=== PATIENT | male | born 1935 | race African-American/Black ===

== ENCOUNTER 2020-06-24 15:42 | Inpatient (IN) | payer MEDICARE, BC ==
[~2020-06-24] VITALS: Ht 180.3 cm; Wt 88.5 kg
[2020-06-24] MEDS ORDERED: ONDANSETRON HCL 4MG/2ML INJ IV STA (15:58)
[2020-06-24] MEDS ORDERED: MORPHINE SULFATE 4 MG/ML CPJ (NOT FOR IM USE) IV STA ×2 (15:58→18:01)
[2020-06-24] MEDS ORDERED: SODIUM CHLORIDE 0.9% 1,000 ML IV ONE (16:00)
[2020-06-24 16:33] LABS: BASOPHILS % 0.8 % (0.0-2.0); EOSINOPHILS % 14.1 % (0.0-5.0); HEMATOCRIT. 39.1 % (42.0-52.0); HEMOGLOBIN. 12.5 g/dL (14.0-18.0); LYMPHOCYTES % 26.6 % (20.0-50.0); MEAN CORPUSCULAR HEMOGLOBIN 25.5 pg (28.0-32.0); MEAN CORPUSCULAR VOLUME 79.8 fL (80.0-94.0); MEAN PLATELET VOLUME 9.3 fl (7.4-10.4); MONOCYTES % 7.5 % (2.0-8.0); PLATELET 132 x1000/uL (130-400); RED CELL DISTRIBUTION WIDTH 21.6 % (11.6-14.6)
[2020-06-24 16:38] LABS: CHLORIDE 109 mEq/L (98-107)
[2020-06-24 16:45] LABS: PROTHROMBIN TIME 11.1 sec (9.6-11.0)
[2020-06-24] MEDS ORDERED: CLONIDINE 0.1MG TABLET PO PRN (18:30)
[2020-06-24] MEDS ORDERED: ACETAMINOPHEN 325MG TABLET PO PRN ×2 (18:30→22:00)
[2020-06-24] MEDS ORDERED: ONDANSETRON HCL 4MG/2ML INJ IV PRN (18:30)
[2020-06-24] MEDS: AMLODIPINE 10MG TABLET PO SCH (18:44)
[2020-06-24] MEDS ORDERED: POTASSIUM CHLORIDE 20MEQ TABLET SR PO NR (19:00)
[2020-06-24 20:00] VITALS: BP 116/68
[2020-06-24 20:50] VITALS: BP 116/68
[2020-06-24] MEDS: MORPHINE SULFATE 2 MG/ML CPJ (NOT FOR IM USE) IV PRN (23:09)
[2020-06-25] VITALS: BP 104/59
[2020-06-25] MEDS ORDERED: ABIR250T PO (00:23)
[2020-06-25] MEDS ORDERED: DOCU-150 MT (00:23)
[2020-06-25] MEDS ORDERED: FURO20TA4 PO (00:23)
[2020-06-25] MEDS ORDERED: SENN-257 PO (00:23)
[2020-06-25] MEDS ORDERED: LISI40TA13 PO (00:23)
[2020-06-25] MEDS ORDERED: ASPI-1406 PO (00:23)
[2020-06-25] MEDS ORDERED: LEVO125T8 PO (00:23)
[2020-06-25] MEDS ORDERED: FERR325T6 PO (00:23)
[2020-06-25] MEDS ORDERED: POTA10CA42 PO (00:23)
[2020-06-25] MEDS: MORPHINE SULFATE 2 MG/ML CPJ (NOT FOR IM USE) IV PRN (03:22)
[2020-06-25 04:00] VITALS: BP 104/62
[2020-06-25] MEDS: LEVOTHYROXINE SODIUM 125MCG TABLET PO SCH (05:59)
[2020-06-25 06:46] LABS: BASOPHILS % 0.3 % (0.0-2.0); EOSINOPHILS % 7.1 % (0.0-5.0); HEMATOCRIT. 28.8 % (42.0-52.0); LYMPHOCYTES % 18.3 % (20.0-50.0); MEAN CORPUSCULAR HEMOGLOBIN 25.1 pg (28.0-32.0); MEAN CORPUSCULAR VOLUME 80.4 fL (80.0-94.0); MEAN PLATELET VOLUME 9.1 fl (7.4-10.4); MONOCYTES % 9.8 % (2.0-8.0); NEUTROPHILS % 64.5 % (40.0-76.0); PLATELET 110 x1000/uL (130-400); RED BLOOD CELL COUNT 3.58 mill/uL (4.7-6.1); RED CELL DISTRIBUTION WIDTH 21.6 % (11.6-14.6)
[2020-06-25 06:55] LABS: CHLORIDE 114 mEq/L (98-107)
[2020-06-25 07:09] LABS: T4 FREE 1.01 ng/dL (0.76-1.46)
[2020-06-25] MEDS ORDERED: FERROUS SULFATE 325MG TABLET PO SCH (07:15)
[2020-06-25 08:00] VITALS: BP 109/51
[2020-06-25] MEDS: AMLODIPINE 10MG TABLET PO SCH (08:07)
[2020-06-25] MEDS: DOCUSATE SODIUM 100MG CAPSULE PO SCH (08:11)
[2020-06-25] MEDS: FERROUS SULFATE 325MG TABLET PO SCH ×3 (08:11→17:15)
[2020-06-25] MEDS: ENOXAPARIN 40MG/0.4ML SYR SUBCUT SCH (08:11)
[2020-06-25] MEDS ORDERED: LISINOPRIL 40MG TABLET PO SCH (09:00)
[2020-06-25] MEDS ORDERED: DOCUSATE SODIUM 100MG CAPSULE PO SCH (09:00)
[2020-06-25] MEDS ORDERED: ASPIRIN 81MG TABLET PO SCH (09:00)
[2020-06-25 12:00] VITALS: BP 95/33
[2020-06-25 16:00] VITALS: BP 103/43
[2020-06-25 19:51] LABS: BASOPHILS % 0.4 % (0.0-2.0); EOSINOPHILS % 8.3 % (0.0-5.0); HEMATOCRIT. 26.7 % (42.0-52.0); HEMOGLOBIN. 8.5 g/dL (14.0-18.0); LYMPHOCYTES % 19.4 % (20.0-50.0); MEAN CORPUSCULAR HEMOGLOBIN 25.3 pg (28.0-32.0); MEAN CORPUSCULAR VOLUME 79.4 fL (80.0-94.0); MEAN PLATELET VOLUME 9.1 fl (7.4-10.4); MONOCYTES % 8.6 % (2.0-8.0); NEUTROPHILS % 63.3 % (40.0-76.0); PLATELET 115 x1000/uL (130-400); RED BLOOD CELL COUNT 3.36 mill/uL (4.7-6.1); RED CELL DISTRIBUTION WIDTH 21.7 % (11.6-14.6)
[2020-06-25 20:00] VITALS: BP 110/36
[2020-06-25] MEDS: DILTIAZEM HCL 60MG TABLET PO SCH (21:57)
[2020-06-26] VITALS: BP 158/62
[2020-06-26] MEDS: MORPHINE SULFATE 2 MG/ML CPJ (NOT FOR IM USE) IV PRN (00:50)
[2020-06-26 04:00] VITALS: BP 134/46
[2020-06-26] MEDS: DILTIAZEM HCL 60MG TABLET PO SCH ×3 (06:00→21:06)
[2020-06-26] MEDS ORDERED: BACITRACIN 50,000 UNITS/VIAL ONE ×2 (06:25→07:12)
[2020-06-26] MEDS ORDERED: VANCOMYCIN HCL 1 GM/VIAL ONE ×3 (06:25→10:19)
[2020-06-26] MEDS: LEVOTHYROXINE SODIUM 125MCG TABLET PO SCH (06:25)
[2020-06-26] MEDS: FERROUS SULFATE 325MG TABLET PO SCH ×3 (06:53→18:11)
[2020-06-26 06:56] LABS: CHLORIDE 112 mEq/L (98-107)
[2020-06-26 07:09] LABS: BASOPHILS % 0.3 % (0.0-2.0); EOSINOPHILS % 8.9 % (0.0-5.0); HEMATOCRIT. 25.3 % (42.0-52.0); LYMPHOCYTES % 27.8 % (20.0-50.0); MEAN CORPUSCULAR HEMOGLOBIN 25.5 pg (28.0-32.0); MEAN CORPUSCULAR VOLUME 80.2 fL (80.0-94.0); MEAN PLATELET VOLUME 9.1 fl (7.4-10.4); MONOCYTES % 10.8 % (2.0-8.0); NEUTROPHILS % 52.2 % (40.0-76.0); PLATELET 109 x1000/uL (130-400); RED BLOOD CELL COUNT 3.16 mill/uL (4.7-6.1); RED CELL DISTRIBUTION WIDTH 21.8 % (11.6-14.6)
[2020-06-26] MEDS ORDERED: FENTANYL CITRATE/PF 50MCG/ML 2ML VIAL ONE (07:25)
[2020-06-26] MEDS ORDERED: MIDAZOLAM HCL 2 MG/2 ML VIAL ONE (07:26)
[2020-06-26] MEDS ORDERED: PROPOFOL 200MG/20ML VIAL IV ONE (07:26)
[2020-06-26] MEDS ORDERED: ONDANSETRON HCL 4MG/2ML INJ ONE (07:27)
[2020-06-26] MEDS ORDERED: DEXAMETHASONE 4MG/ML 1ML VIAL ONE (07:27)
[2020-06-26] MEDS ORDERED: ROCURONIUM BROMIDE 10MG/ML VIAL 5ML IV ONE (07:55)
[2020-06-26] MEDS ORDERED: LABETALOL 5MG/ML SYR 20 MG/4 ML SYRINGE IV PRN (08:00)
[2020-06-26] MEDS ORDERED: MEPERIDINE HCL/PF 25MG/ML CPJ IV PRN (08:00)
[2020-06-26] MEDS ORDERED: ONDANSETRON HCL 4MG/2ML INJ IV PRN (08:00)
[2020-06-26] MEDS ORDERED: HYDROMORPHONE HCL/PF 2MG/ML CPJ IV PRN (08:00)
[2020-06-26] MEDS: LISINOPRIL 20MG TABLET PO SCH (09:00)
[2020-06-26] MEDS: DOCUSATE SODIUM 100MG CAPSULE PO SCH (09:00)
[2020-06-26] MEDS: ENOXAPARIN 40MG/0.4ML SYR SUBCUT SCH (09:00)
[2020-06-26] MEDS ORDERED: FENTANYL CITRATE/PF 50MCG/ML 5ML VIAL ONE (09:04)
[2020-06-26] MEDS ORDERED: BUPIVACAINE HCL/PF 0.5% (5MG/ML) 10ML ONE ×2 (09:17→09:18)
[2020-06-26] MEDS ORDERED: GLYCOPYRROLATE 0.2 MG/ML 2ML VIAL ONE (10:55)
[2020-06-26] MEDS ORDERED: NEOSTIGMINE METHYLSULFATE 1MG/ML 10 ML VIAL ONE (10:55)
[2020-06-26 12:00] VITALS: BP 106/52
[2020-06-26 13:01] LABS: HEMATOCRIT. 29.2 % (42.0-52.0); HEMOGLOBIN. 9.5 g/dL (14.0-18.0); MEAN CORPUSCULAR VOLUME 80.2 fL (80.0-94.0); MEAN PLATELET VOLUME 8.8 fl (7.4-10.4); PLATELET 85 x1000/uL (130-400); RED BLOOD CELL COUNT 3.65 mill/uL (4.7-6.1); RED CELL DISTRIBUTION WIDTH 19.6 % (11.6-14.6)
[2020-06-26] MEDS: CEFAZOLIN 2,000 MG in DEXT 5% WATER 100 ML IV SCH ×2 (15:00→21:06)
[2020-06-26 16:00] VITALS: BP 114/49
[2020-06-26 17:12] LABS: PLATELET ESTIMATE DECREASED
[2020-06-26 20:00] VITALS: BP 107/40
[2020-06-27] VITALS: BP 128/68
[2020-06-27 04:00] VITALS: BP 148/52
[2020-06-27] MEDS: FERROUS SULFATE 325MG TABLET PO SCH ×3 (06:37→17:58)
[2020-06-27] MEDS: DILTIAZEM HCL 60MG TABLET PO SCH (06:37)
[2020-06-27] MEDS: LEVOTHYROXINE SODIUM 125MCG TABLET PO SCH (06:37)
[2020-06-27] MEDS: CEFAZOLIN 2,000 MG in DEXT 5% WATER 100 ML IV SCH ×3 (06:37→22:14)
[2020-06-27 06:45] LABS: HEMATOCRIT. 27.3 % (42.0-52.0); MEAN CORPUSCULAR HEMOGLOBIN 25.7 pg (28.0-32.0); MEAN CORPUSCULAR VOLUME 77.6 fL (80.0-94.0); MEAN PLATELET VOLUME 9.1 fl (7.4-10.4); PLATELET 96 x1000/uL (130-400); RED BLOOD CELL COUNT 3.52 mill/uL (4.7-6.1); RED CELL DISTRIBUTION WIDTH 19.2 % (11.6-14.6)
[2020-06-27 07:00] LABS: CHLORIDE 115 mEq/L (98-107)
[2020-06-27 08:00] VITALS: BP 144/38
[2020-06-27] MEDS: DOCUSATE SODIUM 100MG CAPSULE PO SCH (09:15)
[2020-06-27] MEDS: LISINOPRIL 20MG TABLET PO SCH (09:15)
[2020-06-27] MEDS: MORPHINE SULFATE 2 MG/ML CPJ (NOT FOR IM USE) IV PRN (11:21)
[2020-06-27 11:49] LABS: PLATELET ESTIMATE DECREASED
[2020-06-27 12:00] VITALS: BP 118/39
[2020-06-27] MEDS: ENOXAPARIN 40MG/0.4ML SYR SUBCUT SCH (12:37)
[2020-06-27] MEDS: HYDROCODONE/ACETAMINOPHEN 10/325MG TABLET PO PRN (13:07)
[2020-06-27] MEDS: DILTIAZEM HCL 90MG TABLET PO SCH ×2 (14:00→22:00)
[2020-06-27 16:00] VITALS: BP 102/37
[2020-06-27 20:00] VITALS: BP 121/44
[2020-06-28] VITALS: BP 121/49
[2020-06-28] MEDS: HYDROCODONE/ACETAMINOPHEN 10/325MG TABLET PO PRN ×3 (03:06→20:40)
[2020-06-28 04:00] VITALS: BP 143/49
[2020-06-28] MEDS: DILTIAZEM HCL 90MG TABLET PO SCH (05:02)
[2020-06-28] MEDS: CEFAZOLIN 2,000 MG in DEXT 5% WATER 100 ML IV SCH ×3 (05:03→23:21)
[2020-06-28] MEDS: LEVOTHYROXINE SODIUM 125MCG TABLET PO SCH (06:12)
[2020-06-28] MEDS: FERROUS SULFATE 325MG TABLET PO SCH ×3 (06:12→18:20)
[2020-06-28 07:28] LABS: BASOPHILS % 0.2 % (0.0-2.0); EOSINOPHILS % 7.2 % (0.0-5.0); HEMATOCRIT. 23.8 % (42.0-52.0); LYMPHOCYTES % 15.5 % (20.0-50.0); MEAN CORPUSCULAR HEMOGLOBIN 26.9 pg (28.0-32.0); MEAN CORPUSCULAR VOLUME 79.8 fL (80.0-94.0); MEAN PLATELET VOLUME 9.2 fl (7.4-10.4); MONOCYTES % 7.9 % (2.0-8.0); NEUTROPHILS % 69.2 % (40.0-76.0); PLATELET 102 x1000/uL (130-400); RED BLOOD CELL COUNT 2.98 mill/uL (4.7-6.1); RED CELL DISTRIBUTION WIDTH 19.7 % (11.6-14.6)
[2020-06-28 07:42] LABS: CHLORIDE 109 mEq/L (98-107)
[2020-06-28 08:00] VITALS: BP 144/43
[2020-06-28] MEDS: ENOXAPARIN 40MG/0.4ML SYR SUBCUT SCH (09:23)
[2020-06-28] MEDS: DOCUSATE SODIUM 100MG CAPSULE PO SCH (09:23)
[2020-06-28] MEDS: LISINOPRIL 20MG TABLET PO SCH (09:23)
[2020-06-28] MEDS ORDERED: DILTIAZEM HCL 300MG CAPSULE SR 24HR PO SCH (11:30)
[2020-06-28 12:00] VITALS: BP 113/50
[2020-06-28] MEDS: DILTIAZEM HCL 300MG CAPSULE SR 24HR PO SCH (13:19)
[2020-06-28 16:00] VITALS: BP 122/43
[2020-06-28 20:00] VITALS: BP 113/57
[2020-06-29] VITALS: BP 138/53
[2020-06-29 04:00] VITALS: BP 148/70
[2020-06-29] MEDS: LEVOTHYROXINE SODIUM 125MCG TABLET PO SCH (05:56)
[2020-06-29] MEDS: CEFAZOLIN 2,000 MG in DEXT 5% WATER 100 ML IV SCH (05:56)
[2020-06-29 06:14] LABS: CHLORIDE 107 mEq/L (98-107)
[2020-06-29 06:19] LABS: BASOPHILS % 0.3 % (0.0-2.0); EOSINOPHILS % 7.7 % (0.0-5.0); HEMATOCRIT. 24.7 % (42.0-52.0); HEMOGLOBIN. 8.3 g/dL (14.0-18.0); LYMPHOCYTES % 15.3 % (20.0-50.0); MEAN CORPUSCULAR HEMOGLOBIN 27.1 pg (28.0-32.0); MEAN CORPUSCULAR VOLUME 80.9 fL (80.0-94.0); MEAN PLATELET VOLUME 8.6 fl (7.4-10.4); MONOCYTES % 9.2 % (2.0-8.0); NEUTROPHILS % 67.5 % (40.0-76.0); PLATELET 125 x1000/uL (130-400); RED BLOOD CELL COUNT 3.06 mill/uL (4.7-6.1); RED CELL DISTRIBUTION WIDTH 19.2 % (11.6-14.6)
[2020-06-29] MEDS: FERROUS SULFATE 325MG TABLET PO SCH ×4 (07:44→18:13)
[2020-06-29 08:00] VITALS: BP 104/42
[2020-06-29] MEDS: LISINOPRIL 20MG TABLET PO SCH (09:00)
[2020-06-29] MEDS: DILTIAZEM HCL 300MG CAPSULE SR 24HR PO SCH (09:00)
[2020-06-29] MEDS: DOCUSATE SODIUM 100MG CAPSULE PO SCH ×2 (09:47→18:13)
[2020-06-29] MEDS: ENOXAPARIN 40MG/0.4ML SYR SUBCUT SCH (09:47)
[2020-06-29] MEDS: HYDROCODONE/ACETAMINOPHEN 10/325MG TABLET PO PRN (09:48)
[2020-06-29 12:00] VITALS: BP 139/54
[2020-06-29 13:04] LABS: TOTAL IRON BINDING CAPACITY 271 ug/dL (250-450)
[2020-06-29 16:00] VITALS: BP 133/47
[2020-06-29] MEDS ORDERED: DOCUSATE SODIUM 250MG CAPSULE PO SCH (18:00)
[2020-06-29 20:00] VITALS: BP 153/52
[2020-06-30] VITALS: BP 151/51
[2020-06-30] MEDS: LEVOTHYROXINE SODIUM 125MCG TABLET PO SCH (06:20)
[2020-06-30 06:55] LABS: BASOPHILS % 0.2 % (0.0-2.0); HEMATOCRIT. 24.6 % (42.0-52.0); HEMOGLOBIN. 7.9 g/dL (14.0-18.0); LYMPHOCYTES % 11.3 % (20.0-50.0); MEAN CORPUSCULAR HEMOGLOBIN 25.9 pg (28.0-32.0); MEAN CORPUSCULAR VOLUME 81.2 fL (80.0-94.0); MEAN PLATELET VOLUME 8.3 fl (7.4-10.4); MONOCYTES % 7.9 % (2.0-8.0); NEUTROPHILS % 73.6 % (40.0-76.0); PLATELET 152 x1000/uL (130-400); RED BLOOD CELL COUNT 3.03 mill/uL (4.7-6.1); RED CELL DISTRIBUTION WIDTH 19.1 % (11.6-14.6)
[2020-06-30 07:01] LABS: CHLORIDE 106 mEq/L (98-107)
[2020-06-30] MEDS: FERROUS SULFATE 325MG TABLET PO SCH ×5 (07:15→17:58)
[2020-06-30 08:00] VITALS: BP 160/67
[2020-06-30] MEDS: DILTIAZEM HCL 300MG CAPSULE SR 24HR PO SCH (08:56)
[2020-06-30] MEDS: HYDROCODONE/ACETAMINOPHEN 10/325MG TABLET PO PRN (08:57)
[2020-06-30] MEDS: DOCUSATE SODIUM 100MG CAPSULE PO SCH (08:57)
[2020-06-30] MEDS: LISINOPRIL 20MG TABLET PO SCH (08:57)
[2020-06-30] MEDS: ENOXAPARIN 40MG/0.4ML SYR SUBCUT SCH (08:58)
[2020-06-30] MEDS ORDERED: POTASSIUM CHLORIDE 20MEQ TABLET SR PO NR (10:45)
[2020-06-30] MEDS: FOLIC ACID 1MG TABLET PO SCH (11:20)
[2020-06-30 12:00] VITALS: BP 153/57
[2020-06-30 16:00] VITALS: BP_SYST 122; BP_SYST 158; BP_DIAS 50; BP_DIAS 59
[2020-06-30 20:00] VITALS: BP 123/58
[2020-06-30] MEDS: DILTIAZEM HCL 120MG CAPSULE CD 24HR PO SCH (21:30)
[2020-07-01] VITALS: BP 124/65
[2020-07-01 04:00] VITALS: BP 118/53
[2020-07-01] MEDS: LEVOTHYROXINE SODIUM 125MCG TABLET PO SCH (06:50)
[2020-07-01 07:07] LABS: CHLORIDE 107 mEq/L (98-107)
[2020-07-01 07:16] LABS: BASOPHILS % 0.4 % (0.0-2.0); EOSINOPHILS % 7.3 % (0.0-5.0); HEMATOCRIT. 22.6 % (42.0-52.0); HEMOGLOBIN. 7.3 g/dL (14.0-18.0); LYMPHOCYTES % 11.7 % (20.0-50.0); MEAN CORPUSCULAR HEMOGLOBIN 26.5 pg (28.0-32.0); MEAN CORPUSCULAR VOLUME 81.6 fL (80.0-94.0); MEAN PLATELET VOLUME 8.3 fl (7.4-10.4); MONOCYTES % 9.2 % (2.0-8.0); NEUTROPHILS % 71.4 % (40.0-76.0); PLATELET 163 x1000/uL (130-400); RED BLOOD CELL COUNT 2.76 mill/uL (4.7-6.1); RED CELL DISTRIBUTION WIDTH 19.7 % (11.6-14.6)
[2020-07-01 08:00] VITALS: BP 100/56
[2020-07-01] MEDS: ENOXAPARIN 40MG/0.4ML SYR SUBCUT SCH (08:34)
[2020-07-01] MEDS: DOCUSATE SODIUM 100MG CAPSULE PO SCH (08:34)
[2020-07-01] MEDS: FOLIC ACID 1MG TABLET PO SCH (08:34)
[2020-07-01] MEDS: FERROUS SULFATE 325MG TABLET PO SCH ×3 (08:34→17:12)
[2020-07-01] MEDS: LISINOPRIL 20MG TABLET PO SCH (09:00)
[2020-07-01] MEDS: DILTIAZEM HCL 120MG CAPSULE CD 24HR PO SCH ×2 (09:00→21:51)
[2020-07-01] MEDS ORDERED: POTASSIUM CHLORIDE 20MEQ TABLET SR PO SCH (09:45)
[2020-07-01 16:15] VITALS: BP 112/60
[2020-07-01 20:00] VITALS: BP 145/54
[2020-07-02] VITALS (7 sets, daily range): BP systolic 101–169; BP diastolic 38–61
[2020-07-02] MEDS: LEVOTHYROXINE SODIUM 125MCG TABLET PO SCH (06:24)
[2020-07-02 08:00] LABS: BASOPHILS % 0.7 % (0.0-2.0); HEMATOCRIT. 26.1 % (42.0-52.0); HEMOGLOBIN. 8.6 g/dL (14.0-18.0); LYMPHOCYTES % 11.9 % (20.0-50.0); MEAN CORPUSCULAR HEMOGLOBIN 27.4 pg (28.0-32.0); MEAN CORPUSCULAR VOLUME 83.1 fL (80.0-94.0); MEAN PLATELET VOLUME 8.4 fl (7.4-10.4); MONOCYTES % 9.5 % (2.0-8.0); NEUTROPHILS % 68.9 % (40.0-76.0); PLATELET 197 x1000/uL (130-400); RED BLOOD CELL COUNT 3.13 mill/uL (4.7-6.1); RED CELL DISTRIBUTION WIDTH 20.1 % (11.6-14.6)
[2020-07-02 08:03] LABS: CHLORIDE 106 mEq/L (98-107)
[2020-07-02] MEDS: FERROUS SULFATE 325MG TABLET PO SCH ×3 (08:50→17:26)
[2020-07-02] MEDS: FOLIC ACID 1MG TABLET PO SCH (08:51)
[2020-07-02] MEDS: DOCUSATE SODIUM 100MG CAPSULE PO SCH (08:51)
[2020-07-02] MEDS: ENOXAPARIN 40MG/0.4ML SYR SUBCUT SCH (08:52)
[2020-07-02] MEDS ORDERED: POTASSIUM CHLORIDE 20MEQ TABLET SR PO SCH (09:00)
[2020-07-02] MEDS ORDERED: LISINOPRIL 20MG TABLET PO SCH (09:00)
[2020-07-02] MEDS: DILTIAZEM HCL 120MG CAPSULE CD 24HR PO SCH (09:55)
== END 2020-07-02 17:42 | DRG 480 ==
LOC: ER 15:42 → 5WST 17:50 → EDBEDREQ 18:00 → ENRESERV 19:44 → 6EST 06-30 16:58
PROVIDERS: ADMIT Internal Medicine; ATTEND Internal Medicine
PROC: 0QSB04Z Reposition Right Lower Femur with Internal Fixation Device, Open Approach (ICD-10-PCS; principal; 2020-06-26)
PROC: 30233N1 Transfusion of Nonautologous Red Blood Cells into Peripheral Vein, Percutaneous Approach (ICD-10-PCS; 2020-06-26)
DX: M97.01XA Periprosthetic fracture around internal prosthetic right hip joint, initial encounter (principal); S72.001A Fracture of unspecified part of neck of right femur, initial encounter for closed fracture; I42.2 Other hypertrophic cardiomyopathy; D64.9 Anemia, unspecified; E87.6 Hypokalemia; E87.8 Other disorders of electrolyte and fluid balance, not elsewhere classified; I11.0 Hypertensive heart disease with heart failure; W01.0XXA Fall on same level from slipping, tripping and stumbling without subsequent striking against object, initial encounter; I50.9 Heart failure, unspecified; Z20.822 Contact with and (suspected) exposure to COVID-19; Z96.641 Presence of right artificial hip joint; Z96.651 Presence of right artificial knee joint; Y93.01 Activity, walking, marching and hiking; K59.00 Constipation, unspecified; X58.XXXA Exposure to other specified factors, initial encounter; N40.0 Benign prostatic hyperplasia without lower urinary tract symptoms; Y92.009 Unspecified place in unspecified non-institutional (private) residence as the place of occurrence of the external cause; Y93.89 Activity, other specified; Y99.8 Other external cause status; D72.819 Decreased white blood cell count, unspecified
CPT/HCPCS: 36415; 71045; 72170; 73552; 76000; 80048; 80053; 82728; 83540; 83550; 84439; 84443; 84484; 85025; 86850; 86900; 86920; 87426; 93005; 93306; 97110; 97162; 97166; 97530; 97535; 99285; C1713; J0690; J1100; J1170; J1650; J2175; J2250; J2270; J2405; J2704; J2710; J3010; J3370; J3490; J7030; J7060; L3670; P9016; P9021

== ENCOUNTER 2020-07-02 17:44 | Inpatient (IN) | payer MEDICARE, BC ==
[~2020-07-02] VITALS: Ht 180.3 cm; Wt 88.5 kg
[~2020-07-02 17:44] MED LIST: ABIR250T PO; ASPI-1406 PO; DOCU-150 MT; FERR325T6 PO; FURO20TA4 PO; LEVO125T8 PO; LISI40TA13 PO; POTA10CA42 PO; SENN-257 PO
[2020-07-02] MEDS ORDERED: CLONIDINE 0.1MG TABLET PO PRN (18:30)
[2020-07-02] MEDS ORDERED: ONDANSETRON HCL 4MG/2ML INJ IV PRN (18:30)
[2020-07-02 19:30] VITALS: BP 144/81
[2020-07-02 20:00] VITALS: BP 144/81
[2020-07-02] MEDS: DILTIAZEM HCL 120MG CAPSULE CD 24HR PO SCH (21:00)
[2020-07-02] MEDS ORDERED: ZOLPIDEM TARTRATE 5MG TABLET PO PRN ×2 (22:30→22:45)
[2020-07-03] MEDS: LEVOTHYROXINE SODIUM 125MCG TABLET PO SCH (06:28)
[2020-07-03 08:00] VITALS: BP 150/59
[2020-07-03] MEDS: FOLIC ACID 1MG TABLET PO SCH (09:51)
[2020-07-03] MEDS: ENOXAPARIN 40MG/0.4ML SYR SUBCUT SCH (09:51)
[2020-07-03] MEDS: FERROUS SULFATE 325MG TABLET PO SCH ×3 (09:52→17:37)
[2020-07-03] MEDS: DOCUSATE SODIUM 100MG CAPSULE PO SCH (09:52)
[2020-07-03] MEDS: POTASSIUM CHLORIDE 20MEQ TABLET SR PO SCH (09:52)
[2020-07-03] MEDS: LISINOPRIL 20MG TABLET PO SCH (09:52)
[2020-07-03] MEDS: DILTIAZEM HCL 120MG CAPSULE CD 24HR PO SCH ×2 (09:53→21:00)
[2020-07-03] MEDS: ACETAMINOPHEN 325MG TABLET PO PRN (12:37)
[2020-07-03] MEDS ORDERED: TEMAZEPAM 15MG CAPSULE PO PRN (17:45)
[2020-07-03 21:18] VITALS: BP 123/41
[2020-07-03] MEDS: LORAZEPAM 1MG TABLET PO PRN (23:39)
[2020-07-04] MEDS: ACETAMINOPHEN 325MG TABLET PO PRN ×2 (00:47→06:48)
[2020-07-04] MEDS: LEVOTHYROXINE SODIUM 125MCG TABLET PO SCH (06:01)
[2020-07-04 07:53] VITALS: BP 127/67
[2020-07-04 09:23] LABS: VITAMIN B12 SERUM 1142 pg/mL (211-911)
[2020-07-04] MEDS: DILTIAZEM HCL 120MG CAPSULE CD 24HR PO SCH ×2 (10:00→21:00)
[2020-07-04] MEDS: LISINOPRIL 20MG TABLET PO SCH (10:13)
[2020-07-04] MEDS: FOLIC ACID 1MG TABLET PO SCH (10:13)
[2020-07-04] MEDS: DOCUSATE SODIUM 100MG CAPSULE PO SCH (10:14)
[2020-07-04] MEDS: FERROUS SULFATE 325MG TABLET PO SCH ×3 (10:14→17:29)
[2020-07-04] MEDS: POTASSIUM CHLORIDE 20MEQ TABLET SR PO SCH (10:14)
[2020-07-04] MEDS: ENOXAPARIN 40MG/0.4ML SYR SUBCUT SCH (10:15)
[2020-07-04 20:00] VITALS: BP 113/44
[2020-07-05] MEDS: ACETAMINOPHEN 325MG TABLET PO PRN (00:47)
[2020-07-05] MEDS: LORAZEPAM 1MG TABLET PO PRN ×2 (01:28→21:40)
[2020-07-05] MEDS: LEVOTHYROXINE SODIUM 125MCG TABLET PO SCH (05:47)
[2020-07-05 07:17] LABS: CHLORIDE 108 mEq/L (98-107)
[2020-07-05 07:19] LABS: HEMATOCRIT. 27.8 % (42.0-52.0); MEAN CORPUSCULAR HEMOGLOBIN 27.6 pg (28.0-32.0); MEAN CORPUSCULAR VOLUME 84.9 fL (80.0-94.0); MEAN PLATELET VOLUME 8.6 fl (7.4-10.4); PLATELET 273 x1000/uL (130-400); RED BLOOD CELL COUNT 3.27 mill/uL (4.7-6.1); RED CELL DISTRIBUTION WIDTH 21.8 % (11.6-14.6)
[2020-07-05 08:00] VITALS: BP 130/65
[2020-07-05] MEDS: DOCUSATE SODIUM 100MG CAPSULE PO SCH (09:50)
[2020-07-05] MEDS: DILTIAZEM HCL 120MG CAPSULE CD 24HR PO SCH ×2 (09:51→21:00)
[2020-07-05] MEDS: POTASSIUM CHLORIDE 20MEQ TABLET SR PO SCH (09:51)
[2020-07-05] MEDS: FERROUS SULFATE 325MG TABLET PO SCH ×3 (09:52→17:30)
[2020-07-05] MEDS: FOLIC ACID 1MG TABLET PO SCH (09:52)
[2020-07-05] MEDS: LISINOPRIL 20MG TABLET PO SCH ×2 (09:52→09:57)
[2020-07-05] MEDS: ENOXAPARIN 40MG/0.4ML SYR SUBCUT SCH (09:58)
[2020-07-05 13:34] LABS: PLATELET ESTIMATE NORMAL
[2020-07-05 20:00] VITALS: BP 114/59
[2020-07-06] MEDS: LEVOTHYROXINE SODIUM 125MCG TABLET PO SCH (05:45)
[2020-07-06 08:00] VITALS: BP 109/60
[2020-07-06] MEDS: DILTIAZEM HCL 120MG CAPSULE CD 24HR PO SCH ×2 (08:37→21:00)
[2020-07-06] MEDS: DOCUSATE SODIUM 100MG CAPSULE PO SCH (08:38)
[2020-07-06] MEDS: FOLIC ACID 1MG TABLET PO SCH (08:38)
[2020-07-06] MEDS: FERROUS SULFATE 325MG TABLET PO SCH ×3 (08:38→16:48)
[2020-07-06] MEDS: ENOXAPARIN 40MG/0.4ML SYR SUBCUT SCH (08:43)
[2020-07-06] MEDS: POTASSIUM CHLORIDE 20MEQ TABLET SR PO SCH (08:46)
[2020-07-06 20:00] VITALS: BP 152/57
[2020-07-07] MEDS: LEVOTHYROXINE SODIUM 125MCG TABLET PO SCH (06:42)
[2020-07-07 08:30] VITALS: BP 163/58
[2020-07-07] MEDS: ENOXAPARIN 40MG/0.4ML SYR SUBCUT SCH (09:28)
[2020-07-07] MEDS: LISINOPRIL 20MG TABLET PO SCH (09:28)
[2020-07-07] MEDS: FOLIC ACID 1MG TABLET PO SCH (09:28)
[2020-07-07] MEDS: POTASSIUM CHLORIDE 20MEQ TABLET SR PO SCH (09:28)
[2020-07-07] MEDS: FERROUS SULFATE 325MG TABLET PO SCH ×3 (09:28→16:19)
[2020-07-07] MEDS: DOCUSATE SODIUM 100MG CAPSULE PO SCH (09:29)
[2020-07-07] MEDS: DILTIAZEM HCL 120MG CAPSULE CD 24HR PO SCH ×2 (09:37→20:40)
[2020-07-07] MEDS: ACETAMINOPHEN 325MG TABLET PO PRN (09:38)
[2020-07-07 20:00] VITALS: BP 106/43
[2020-07-08] MEDS: LEVOTHYROXINE SODIUM 125MCG TABLET PO SCH (06:34)
[2020-07-08] MEDS: ACETAMINOPHEN 325MG TABLET PO PRN (06:34)
[2020-07-08 07:55] VITALS: BP 149/61
[2020-07-08] MEDS: POTASSIUM CHLORIDE 20MEQ TABLET SR PO SCH (08:35)
[2020-07-08] MEDS: ENOXAPARIN 40MG/0.4ML SYR SUBCUT SCH (08:35)
[2020-07-08] MEDS: DOCUSATE SODIUM 100MG CAPSULE PO SCH (08:35)
[2020-07-08] MEDS: FERROUS SULFATE 325MG TABLET PO SCH ×3 (08:35→16:19)
[2020-07-08] MEDS: FOLIC ACID 1MG TABLET PO SCH (08:35)
[2020-07-08] MEDS: LISINOPRIL 20MG TABLET PO SCH (08:39)
[2020-07-08] MEDS: DILTIAZEM HCL 120MG CAPSULE CD 24HR PO SCH ×2 (08:41→20:21)
[2020-07-08 20:00] VITALS: BP 133/55
[2020-07-09] MEDS: LEVOTHYROXINE SODIUM 125MCG TABLET PO SCH (06:04)
[2020-07-09] MEDS: ACETAMINOPHEN 325MG TABLET PO PRN (06:05)
[2020-07-09 08:32] VITALS: BP 157/59
[2020-07-09] MEDS: DILTIAZEM HCL 120MG CAPSULE CD 24HR PO SCH ×2 (08:57→20:56)
[2020-07-09] MEDS: ENOXAPARIN 40MG/0.4ML SYR SUBCUT SCH (08:59)
[2020-07-09] MEDS: FERROUS SULFATE 325MG TABLET PO SCH ×3 (08:59→16:30)
[2020-07-09] MEDS: POTASSIUM CHLORIDE 20MEQ TABLET SR PO SCH (08:59)
[2020-07-09] MEDS: DOCUSATE SODIUM 100MG CAPSULE PO SCH (08:59)
[2020-07-09] MEDS: LISINOPRIL 10MG TABLET PO SCH (08:59)
[2020-07-09] MEDS: FOLIC ACID 1MG TABLET PO SCH (08:59)
[2020-07-09 12:35] LABS: BASOPHILS % 0.3 % (0.0-2.0); EOSINOPHILS % 9.8 % (0.0-5.0); HEMOGLOBIN. 10.3 g/dL (14.0-18.0); LYMPHOCYTES % 11.6 % (20.0-50.0); MEAN CORPUSCULAR HEMOGLOBIN 27.5 pg (28.0-32.0); MEAN CORPUSCULAR VOLUME 88.4 fL (80.0-94.0); NEUTROPHILS % 69.3 % (40.0-76.0); PLATELET 312 x1000/uL (130-400); RED BLOOD CELL COUNT 3.74 mill/uL (4.7-6.1); RED CELL DISTRIBUTION WIDTH 22.5 % (11.6-14.6)
[2020-07-09 12:43] LABS: CHLORIDE 106 mEq/L (98-107)
[2020-07-09 21:30] VITALS: BP 150/63
[2020-07-10] MEDS: LEVOTHYROXINE SODIUM 125MCG TABLET PO SCH (06:20)
[2020-07-10 08:00] VITALS: BP 108/54
[2020-07-10] MEDS: DILTIAZEM HCL 120MG CAPSULE CD 24HR PO SCH ×2 (08:43→10:30)
[2020-07-10] MEDS: ENOXAPARIN 40MG/0.4ML SYR SUBCUT SCH (08:44)
[2020-07-10] MEDS: POTASSIUM CHLORIDE 20MEQ TABLET SR PO SCH (08:45)
[2020-07-10] MEDS: DOCUSATE SODIUM 100MG CAPSULE PO SCH (08:45)
[2020-07-10] MEDS: LISINOPRIL 10MG TABLET PO SCH (08:45)
[2020-07-10] MEDS: FOLIC ACID 1MG TABLET PO SCH (08:45)
[2020-07-10] MEDS: FERROUS SULFATE 325MG TABLET PO SCH ×3 (08:45→16:27)
[2020-07-10 20:00] VITALS: BP 179/71
[2020-07-11] MEDS: LEVOTHYROXINE SODIUM 125MCG TABLET PO SCH (06:25)
[2020-07-11 07:54] VITALS: BP 150/59
[2020-07-11] MEDS: FERROUS SULFATE 325MG TABLET PO SCH ×3 (08:35→17:33)
[2020-07-11] MEDS: ENOXAPARIN 40MG/0.4ML SYR SUBCUT SCH (08:35)
[2020-07-11] MEDS: LISINOPRIL 10MG TABLET PO SCH (08:36)
[2020-07-11] MEDS: FOLIC ACID 1MG TABLET PO SCH (08:36)
[2020-07-11] MEDS: DOCUSATE SODIUM 100MG CAPSULE PO SCH (08:36)
[2020-07-11] MEDS: POTASSIUM CHLORIDE 20MEQ TABLET SR PO SCH (08:36)
[2020-07-11] MEDS: DILTIAZEM HCL 120MG CAPSULE CD 24HR PO SCH (08:38)
[2020-07-11 20:00] VITALS: BP 166/68
[2020-07-11] MEDS ORDERED: HYDROCODONE/ACETAMINOPHEN 10/325MG TABLET PO PRN (20:00)
[2020-07-12] MEDS: LEVOTHYROXINE SODIUM 125MCG TABLET PO SCH (05:36)
[2020-07-12] MEDS: DOCUSATE SODIUM 100MG CAPSULE PO SCH (08:10)
[2020-07-12] MEDS: FOLIC ACID 1MG TABLET PO SCH (08:10)
[2020-07-12] MEDS: POTASSIUM CHLORIDE 20MEQ TABLET SR PO SCH (08:10)
[2020-07-12] MEDS: FERROUS SULFATE 325MG TABLET PO SCH ×3 (08:10→17:05)
[2020-07-12] MEDS: DILTIAZEM HCL 120MG CAPSULE CD 24HR PO SCH (08:11)
[2020-07-12] MEDS: LISINOPRIL 10MG TABLET PO SCH ×2 (08:12→09:00)
[2020-07-12] MEDS: ENOXAPARIN 40MG/0.4ML SYR SUBCUT SCH (08:23)
[2020-07-12 20:00] VITALS: BP 99/51
[2020-07-13] MEDS: LEVOTHYROXINE SODIUM 125MCG TABLET PO SCH (06:24)
[2020-07-13] MEDS: DOCUSATE SODIUM 100MG CAPSULE PO SCH (08:01)
[2020-07-13] MEDS: FERROUS SULFATE 325MG TABLET PO SCH ×2 (08:01→12:48)
[2020-07-13] MEDS: FOLIC ACID 1MG TABLET PO SCH (08:01)
[2020-07-13] MEDS: POTASSIUM CHLORIDE 20MEQ TABLET SR PO SCH (08:01)
[2020-07-13] MEDS: ENOXAPARIN 40MG/0.4ML SYR SUBCUT SCH (08:06)
[2020-07-13] MEDS: LISINOPRIL 10MG TABLET PO SCH (08:06)
== END 2020-07-13 13:24 | disposition left against medical advice (07) | DRG 536 ==
PROVIDERS: ADMIT Psychiatry & Neurology Neurology; ATTEND Internal Medicine
DX: S72.001A Fracture of unspecified part of neck of right femur, initial encounter for closed fracture (principal); I42.2 Other hypertrophic cardiomyopathy; G93.40 Encephalopathy, unspecified; D64.9 Anemia, unspecified; I10 Essential (primary) hypertension; F03.90 Unspecified dementia, unspecified severity, without behavioral disturbance, psychotic disturbance, mood disturbance, and anxiety; Z96.641 Presence of right artificial hip joint; I87.8 Other specified disorders of veins; F39 Unspecified mood [affective] disorder; M10.9 Gout, unspecified; M48.061 Spinal stenosis, lumbar region without neurogenic claudication; R00.1 Bradycardia, unspecified; W18.39XA Other fall on same level, initial encounter; R26.9 Unspecified abnormalities of gait and mobility; R53.81 Other malaise; Z79.899 Other long term (current) drug therapy; Z85.46 Personal history of malignant neoplasm of prostate; Z79.82 Long term (current) use of aspirin; Y93.89 Activity, other specified; Y92.89 Other specified places as the place of occurrence of the external cause; Y99.8 Other external cause status
CPT/HCPCS: 36415; 73552; 80048; 82040; 82607; 85025; 92523; 93970; 97110; 97116; 97162; 97166; 97530; 97535; J1650